=== PATIENT | male | born 1985 | race African-American/Black ===

== ENCOUNTER 2017-03-16 02:47 | Emergency (ER) | payer SELFPAY ==
[~2017-03-16] VITALS: Ht 177.8 cm; Wt 70.5 kg
[~2017-03-16 02:47] MED LIST: DICL75 PO
[2017-03-16 02:49] VITALS: BP 130/65; PULSE 97; RESP 16; TEMP 98.6; O2SAT 97
--- NOTE | 2017-03-16 03:47 | RADRPT ---
EXAM DATE/TIME: 03/16/2017 03:35 [place] COMPARISON: No previous studies available for comparison. INDICATIONS : Fall 3 days ago on right hip. MEDICAL HISTORY : None. SURGICAL HISTORY : None. ENCOUNTER: Initial ACUITY: 1 day PAIN SCORE: 0/10 LOCATION: Right hip FINDINGS: Radiopaque metallic density is present within the right femoral head with slight degenerative arthrit is in the right hip joint subchondral cystic formation. There are punctate radiopaque metallic densit ies also scattered involving the right hip without evidence for acute fracture. CONCLUSION: No definite fracture is seen for technique. KTemitope Smith MD on March 16, 2017 at 3:44 Board Certified Radiologist. This report was verified electronically.
[2017-03-16] MEDS ORDERED: NAPROXEN 500 MG TAB PO ONE (04:00)
[2017-03-16] MEDS ORDERED: NAPR500 PO (04:01)
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
== END 2017-03-16 05:01 | disposition home or self-care (01) ==
LOC: NEPC 02:47
DX: M25.551 Pain in right hip (principal); W01.0XXA Fall on same level from slipping, tripping and stumbling without subsequent striking against object, initial encounter
CPT/HCPCS: 73502; 99283